=== PATIENT | female | born 2000 | race Caucasian/White ===

== ENCOUNTER 2022-08-11 23:38 | Emergency (ER) | payer OTHER, SELFPAY ==
[2022-08-11 23:41] VITALS: BP 128/76; PULSE 109; RESP 18; TEMP 37.1; O2SAT 98
[2022-08-12 00:49] VITALS: BP 119/66; PULSE 94; RESP 18; TEMP 36.8; O2SAT 99
--- NOTE | 2022-08-12 01:31 | ED.EAR ---
HPI - Ear Problem General Chief complaint: Ear Stated complaint: ear infection Time Seen by Provider: 08/12/22 00:22 Source: patient and family Mode of arrival: ambulatory Limitations: no limitations History of Present Illness HPI Narrative: This is a 22-year-old female that presents to the emergency department for otalgia. Reports she just finished oral and topical antibiotics for an ear infection. Reports she has had continued pain which prompted her to be seen again. Denies fever, erythema, edema, or abnormal drainage. PMFSH Past Medical History Medical History (Updated 08/12/22 @ 01:35 by Camelia Hand PA-C) No active medical problems Social History Social History (Updated 08/12/22 @ 01:35 by Camelia Hand PA-C) Substance use: never Exam Narrative: GENERAL: Well-appearing, well-nourished, and in no acute distress. HEAD: Normocephalic, atraumatic. EYES: EOMI. ENT: Bilateral TMs pearly webb non-bulging. The left TM has a small perforation. There is no erythema, edema or abnormal drainage NECK: Supple. No adenopathy or masses. CHEST: No respiratory distress. HEART: Regular rate EXTREMITIES: Normal range of motion. No edema. SKIN: Warm, dry, no rash. NEURO: No focal deficits. Alert and oriented x3. PSYCH: Normal mood and affect Course Vital Signs Vital signs: Vital Signs Temperature 98.8 F 08/11/22 23:41 Pulse Rate 109 H 08/11/22 23:41 Respiratory Rate 18 08/11/22 23:41 Blood Pressure 128/76 08/11/22 23:41 Pulse Oximetry 98 08/11/22 23:41 Oxygen Delivery Room Air 08/11/22 23:41 Temperature 98.2 F 08/12/22 00:49 Pulse Rate 94 08/12/22 00:49 Respiratory Rate 18 08/12/22 00:49 Blood Pressure 119/66 08/12/22 00:49 Pulse Oximetry 99 08/12/22 00:49 Oxygen Delivery Room Air 08/11/22 23:41 Medical Decision Making MDM Narrative Medical decision making narrative: Patient presents to the emergency department for continued otalgia after recently finishing oral and topical antibiotics for an ear infection. Patient is afebrile and nontoxic-appearing. There is no evidence for infection on exam today. No erythema, edema, or abnormal drainage noted. She does have a very small perforation in her tympanic membrane. She was instructed she should have some follow-up with ENT and to not put anything in the ear and avoid getting water in the ear. She was given warnings to return to the ER Vital Signs Vital Signs: Vital Signs Temperature 98.8 F 08/11/22 23:41 Pulse Rate 109 H 08/11/22 23:41 Respiratory Rate 18 08/11/22 23:41 Blood Pressure 128/76 08/11/22 23:41 Pulse Oximetry 98 08/11/22 23:41 Oxygen Delivery Room Air 08/11/22 23:41 Temperature 98.2 F 08/12/22 00:49 Pulse Rate 94 08/12/22 00:49 Respiratory Rate 18 08/12/22 00:49 Blood Pressure 119/66 08/12/22 00:49 Pulse Oximetry 99 08/12/22 00:49 Oxygen Delivery Room Air 08/11/22 23:41 Critical Care Time Critical Care Time Critical Care Time: No Discharge Plan Discharge Clinical Impression: Tympanic membrane perforation Qualifiers: Laterality: left Qualified Code(s): H72.92 - Unspecified perforation of tympanic membrane, left ear Patient Disposition: Home, Self-Care Condition: Stable Instructions: Ruptured Eardrum (ED) Additional Instructions: Return to the emergency department if you experience fever, redness and swelling of your ear, abnormal drainage from the ear, worsening pain, or any other symptoms that are concerning to you Tylenol or ibuprofen as needed for discomfort. Avoid getting water in the ear Follow-up with ENT Follow-up/Referrals: Kp Fontaine MD [Physician] - 3 Days PHYSICIAN,BRANCH SPECIALIST [Primary Care Provider] -
[2022-08-12 01:53] VITALS: BP 118/75; PULSE 92; RESP 20; TEMP 36.8; O2SAT 98
== END 2022-08-12 01:56 | disposition home or self-care (01) ==
PROVIDERS: Emergency Provider Physician Assistant
DX: H72.92 Unspecified perforation of tympanic membrane, left ear (principal)
CPT/HCPCS: 99281

== ENCOUNTER 2022-09-04 17:51 | Emergency (ER) | payer OTHER, SELFPAY ==
[2022-09-04 19:52] VITALS: BP 117/69; PULSE 85; RESP 17; TEMP 36.7; O2SAT 98
--- NOTE | 2022-09-04 21:19 | ED.EAR ---
HPI - Ear Problem General Chief complaint: Ear Stated complaint: ear pain Time Seen by Provider: 09/04/22 21:07 History of Present Illness HPI Narrative: Patient is a 22-year-old female here for evaluation of left ear pain over the past month. States that she was seen in the ED and subsequently seen at Dr. Fontaine's office for a ruptured tympanic membrane. Patient reportedly was offered patching of the TM which she declined at that time, states that her symptoms improved without intervention. About a week ago her left ear pain returned without obvious trigger. Has been attempting ibuprofen Benadryl without relief. Also notes sinus congestion. She denies any fevers, pain behind her ear, facial swelling. Related Data Allergies Allergy/AdvReac Type Severity Reaction Status Date / Time No Known Allergies Allergy Unverified 08/16/22 08:05 Review of Systems Review of Systems: Gen.: Denies fevers or chills Eyes: Denies eye pain or visual change ENT: Reports left ear pain Respiratory: Denies shortness of breath or cough CV: Denies chest pain or palpitations GI: Denies abdominal pain nausea, emesis or diarrhea denies burning, urgency, frequency or hematuria Musculoskeletal: Denies back pain or muscle pain Neuro: Denies numbness, tingling, weakness or focal weakness Skin: Denies rash Except as documented, all other systems reviewed and negative PMFSH Past Medical History Medical History No active medical problems Family History Family History Sibling Asthma Grandparent Cancer Thyroid disorder Mother Diabetes mellitus Hypertension Social History Social History (Updated 08/16/22 @ 08:06 by Jaky Hanley CMA) Smoking status: Never smoker Alcohol intake: never Substance use: never Lack of Transportation: No Lack of Food: Never True Current Housing: I Have Housing Concerned About Future Housing: No Difficulty Paying Gas/Electric Bills: No Difficulty Paying for Meds: No Currently Unemployed: No Education: High School Diploma/GED Difficulty w/ Childcare or Family Care: No Exam Narrative: APPEARANCE: Well appearing, no pain in distress, well-nourished. Head: Normocephalic and atraumatic. EYES: PERRLA/EOMI, conjunctivae clear NOSE: No nasal drainage EARS: Left TM does have a crescent-shaped rupture at the 7 o'clock position. No mastoid tenderness. External ear normal in appearance THROAT: Oropharynx is clear. Mucous membranes are moist. NECK: Supple. No adenopathy, no masses. RESPIRATORY: Airway patent, respirations nonlabored. Clear to auscultation bilaterally, no rales, rhonchi, wheezing. CARDIOVASCULAR: Regular rate and rhythm without murmurs, rubs, or gallops. ABDOMINAL: Normoactive bowel sounds. Soft, nontender, nondistended. No rebound tenderness or guarding. MUSCULOSKELETAL: Extremities are warm and well-perfused. Moves all extremities well. No edema. NEURO: Normal speech. No focal neurologic deficits. SKIN: Skin is warm and dry. No rashes. PSYCHIATRIC: Normal affect/mood. Course Vital Signs Vital signs: Vital Signs Temperature 98.1 F 09/04/22 19:52 Pulse Rate 85 09/04/22 19:52 Respiratory Rate 17 09/04/22 19:52 Blood Pressure 117/69 09/04/22 19:52 Pulse Oximetry 98 09/04/22 19:52 Oxygen Delivery Room Air 09/04/22 19:52 Temperature 98.1 F 09/04/22 19:52 Pulse Rate 85 09/04/22 19:52 Respiratory Rate 17 09/04/22 19:52 Blood Pressure 117/69 09/04/22 19:52 Pulse Oximetry 98 09/04/22 19:52 Oxygen Delivery Room Air 09/04/22 19:52 Medical Decision Making [facility] Narrative Medical decision making narrative: 22-year-old female here for evaluation of continued left ear pain over the past month after being diagnosed with TM rupture, on exam she does have evidence of a continued rupture, unclear if this is increase
== END 2022-09-04 21:39 | disposition home or self-care (01) ==
LOC: ANHED 22:02
PROVIDERS: Emergency Provider Physician Assistant; PCP Otolaryngology
DX: H72.92 Unspecified perforation of tympanic membrane, left ear (principal)
CPT/HCPCS: 99283

== ENCOUNTER 2022-10-03 18:10 | Emergency (ER) | payer OTHER, SELFPAY ==
--- NOTE | 2022-10-03 18:12 | ECG_ITS ---
Measurements Intervals [place] Rate: 90 P: 44 AR: 128 QRS: 66 QRSD: 93 T: 1 QT: 356 QTc: 437 Interpretive Statements SINUS RHYTHM NONSPECIFIC T-WAVE ABNORMALITY ABNORMAL ECG NO PREVIOUS ECG AVAILABLE FOR COMPARISON Electronically Signed On 10-04-2022 13:38:03 SERVICE DESK AGENT by Blake Rhoades M.D.
[2022-10-03 18:39] VITALS: BP 124/69; PULSE 93; RESP 14; TEMP 36.9; O2SAT 99
[2022-10-03 21:14] VITALS: PULSE 96
--- NOTE | 2022-10-03 21:14 | PC.NURSE ---
Pt c/o pain under her left breast x1 week. She came into the ER tonight because she started having pains in other parts of her chest and under her left arm. She currently denies any pain unless she touches the areas that were hurting. She has been managing her pain at home with OTC pain medication which has been effective. She denies known injury. Denies any associated symptoms. Skin is warm and dry. Respiratory rate regular and non-labored. site monitor shows NSR at a rate of 88.
--- NOTE | 2022-10-03 21:38 | ED.GENADULT ---
HPI - General Adult General Chief complaint: Unspecified Stated complaint: CHEST AND BREAST PAIN. ?LUMPS Time Seen by Provider: 10/03/22 21:08 History of Present Illness HPI narrative: Patient is a 22-year-old female here with her mother and sister for evaluation of pain near her left breast over the past week. Patient was seen at [facility] ED upon symptom onset and reportedly had a reassuring exam and was told to follow-up with her primary doctor. She has an appointment next week with her doctor but wanted to be checked out because her pain is still there. She has been taking naproxen without relief. Believes that she feels a lump in her breast as well. No nipple discharge, overlying skin changes, fevers or chills, breast redness. Related Data Allergies Allergy/AdvReac Type Severity Reaction Status Date / Time No Known Allergies Allergy Unverified 09/18/22 08:48 Review of Systems Review of Systems: Gen.: Denies fevers or chills Eyes: Denies eye pain or visual change ENT: Denies congestion Respiratory: Denies shortness of breath or cough CV: Denies chest pain or palpitations GI: Denies abdominal pain nausea, emesis or diarrhea denies burning, urgency, frequency or hematuria Musculoskeletal: Reports pain near left breast. Denies back pain or muscle pain Neuro: Denies numbness, tingling, weakness or focal weakness Skin: Denies rash Except as documented, all other systems reviewed and negative PMFSH Past Medical History Medical History No active medical problems Family History Family History Sibling Asthma Grandparent Cancer Thyroid disorder Mother Diabetes mellitus Hypertension Social History Social History Smoking status: Never smoker Alcohol intake: never Substance use: never Lack of Transportation: No Lack of Food: Never True Current Housing: I Have Housing Concerned About Future Housing: No Difficulty Paying Gas/Electric Bills: No Difficulty Paying for Meds: No Currently Unemployed: No Education: High School Diploma/GED Difficulty w/ Childcare or Family Care: No Exam Narrative: APPEARANCE: Well appearing, no pain in distress, well-nourished. Head: Normocephalic and atraumatic. EYES: PERRLA/EOMI, conjunctivae clear NOSE: No nasal drainage EARS: External ear normal in appearance THROAT: Oropharynx is clear. Mucous membranes are moist. NECK: Supple. No adenopathy, no masses. RESPIRATORY: Airway patent, respirations nonlabored. Clear to auscultation bilaterally, no rales, rhonchi, wheezing. CARDIOVASCULAR: Regular rate and rhythm without murmurs, rubs, or gallops. ABDOMINAL: Normoactive bowel sounds. Soft, nontender, nondistended. No rebound tenderness or guarding. MUSCULOSKELETAL: Breasts are symmetric in size. No overlying skin changes or inversion of the nipple. No tenderness to palpation of either breast. No masses palpated, fibrocystic changes noted in the left breast. Tenderness to palpation along the sternum and bra line. NEURO: Normal speech. No focal neurologic deficits. SKIN: Skin is warm and dry. No rashes. PSYCHIATRIC: Normal affect/mood. Course Vital Signs Vital signs: Vital Signs Temperature 98.4 F 10/03/22 18:39 Pulse Rate 93 10/03/22 18:39 Respiratory Rate 14 10/03/22 18:39 Blood Pressure 124/69 10/03/22 18:39 Pulse Oximetry 99 10/03/22 18:39 Oxygen Delivery Room Air 10/03/22 18:39 Temperature 98.4 F 10/03/22 18:39 Pulse Rate 82 10/03/22 22:37 Respiratory Rate 18 10/03/22 22:37 Blood Pressure 114/63 10/03/22 22:37 Pulse Oximetry 98 10/03/22 22:37 Oxygen Delivery Room Air 10/03/22 18:39 Medical Decision Making MDM Narrative Medical decision making narrative: 22-year-old female here for evaluation of pain near her left breas
[2022-10-03] MEDS: ACETAMINOPHEN 325 MG TABLET 650 MG PO (21:52)
[2022-10-03 22:37] VITALS: BP 114/63; PULSE 82; RESP 18; O2SAT 98
== END 2022-10-03 22:39 | disposition home or self-care (01) ==
PROVIDERS: Emergency Provider Physician Assistant
DX: M94.0 Chondrocostal junction syndrome [Tietze] (principal); R94.31 Abnormal electrocardiogram [ECG] [EKG]
CPT/HCPCS: 93005; 99283; A9270

== ENCOUNTER 2022-10-08 07:06 | Emergency (ER) | payer OTHER, SELFPAY ==
[2022-10-08] VITALS (23 sets, daily range): BP systolic 103–124; BP diastolic 59–68; PULSE 68–96; RESP 12–21; TEMP 37.4; O2SAT 97–100
--- NOTE | ~2022-10-08 | CT_ITS ---
EXAMINATION: CTA chest PE protocol DATE: 10/08/2022 15:59 INDICATION: dyspnea TECHNIQUE: Computed tomography angiography (CTA) of the chest was performed with 100 mL Omnipaque-350 intravenous contrast timed to evaluate the pulmonary arteries. Coronal maximum intensity projection 3D-reconstructions were created by the technologist. The dose-length product (DLP) was 295.74 mGy-cm. Automated exposure control and iterative reconstruction technique were employed. COMPARISON: X-ray chest, same date. FINDINGS: Lung parenchyma and airways: Clear. Pleura: Unremarkable. Thoracic inlet, axillae and chest wall: Unremarkable. Thoracic aorta: Normal. Mediastinum: Normal. Heart and pericardium: Normal. Coronary artery calcifications: Absent. Upper abdomen: No significant finding. Bones: No acute osseous finding. Pulmonary arteries: Study quality: Adequate. No pulmonary emboli detected. IMPRESSION: No CT evidence of acute pulmonary embolus. No acute process detected in the chest. Reviewed, dictated and finalized at location K. MASTER IMPRESSION: No CT evidence of acute pulmonary embolus. No acute process detected in the [address].
--- NOTE | ~2022-10-08 | XR_ITS ---
XR chest 2V DATE: 10/08/2022 07:50 INDICATION: Worsening right-sided chest pain] breast swelling. TECHNIQUE: PA and lateral views COMPARISON: None FINDINGS: Normal heart size. No hilar or mediastinal enlargement. No pulmonary infiltrate or consolid ation, pleural effusion or pulmonary vascular congestion or pneumothorax. Minimal thoracic dextroscoliosis. IMPRESSION: No active cardiopulmonary disease Reviewed, dictated and finalized at location A. DELIVERY VEHICLE TEAM TECHNICIAN
--- NOTE | ~2022-10-08 | US_ITS ---
US breast LT limited DATE: 10/08/2022 10:12 INDICATION: Left breast pain, hardening TECHNIQUE: Real-time and color flow imaging of the left breast was performed at the area of complaint of pain, hardening COMPARISON: None FINDINGS: No suspicious mass or shadowing or abnormal vascularity of the left breast is noted in the areas of clinical complaint, with images provided at 3:00, 4:00, 5:00, 6:00 and subareolar area. IMPRESSION: Negative Reviewed, dictated and finalized at Location A. Reviewed, dictated and finalized at location A. MBLER PING PONG TABLE IMPRESSION: Negative
[2022-10-08 08:14] LABS: Basophils Percent Auto 0.4 % (0.2-1.2); Eosinophils Absolute Auto 0.1 K/mm3 (0-0.3); Eosinophils Percent Auto 1.6 % (0-4.4); Hematocrit 36.4 % (37.0-47.0); Hemoglobin 11.9 g/dL (12.0-15.0); Immature Granulocyte Absolute 0.02 K/mm3 (0.00-0.031); Immature Granulocyte Percent A 0.3 % (0-0.5); Lymphocytes Percent Auto 28.2 % (18.3-44.2); Mean Corpuscular HGB Conc 32.7 g/dl (32-36); Mean Corpuscular Volume 91.7 fl (80-100); Mean Platelet Volume 9.8 fl (7.4-10.4); Monocytes Absolute Auto 0.6 K/mm3 (0.1-0.6); Monocytes Percent Auto 8.5 % (2.6-8.5); Neutrophils Absolute Auto 4.3 K/mm3 (1.3-6.7); Platelet Count Result 290 k/mm3 (150-375); Red Blood Count 3.97 M/mm3 (4.2-5.4); Red Cell Distribution Width 12.4 % (11.5-14.5); White Blood Count 7.1 K/mm3 (4.5-10.0)
[2022-10-08 08:26] LABS: Alanine Aminotransferase 18 U/L (6-35); Albumin Level 4.4 g/dL (3.5-5.1); Alkaline Phosphatase 45 U/L (38-126); Anion Gap 7 mmol/L (8-16); Aspartate Amino Transferase 17 U/L (14-36); Bilirubin,Total 0.6 mg/dL (0.2-1.3); Blood Urea Nitrogen 9 mg/dL (7-17); Calcium 8.7 mg/dL (8.4-10.2); Carbon Dioxide 23 mmol/L (22-30); Chloride 106 mmol/L (98-107); Estimated CRCL calculation 133 ml/min; Estimated Glomerular Filt Rate > 60; Glucose 95 mg/dL (65-110); INR 1.1; Lipase 54 U/L (23-300); Partial Thromboplastin Time 26.6 SECONDS (22.3-36.8); Potassium 3.6 mmol/L (3.4-5.0); Prothrombin Time 13.3 Seconds (11.1-14.7); Sodium 136 mmol/L (137-145)
[2022-10-08 08:37] LABS: Troponin I < 0.012 ng/mL (0.000-0.034)
[2022-10-08] MEDS: FAMOTIDINE 20 MG/2 ML VIAL IV PUSH (09:14)
[2022-10-08 11:20] LABS: Troponin I < 0.012 ng/mL (0.000-0.034)
[2022-10-08] MEDS: BELLADONNA ALK/PHENOB ELIX 10 ML, MAG HYDROX/ALUMINUM HYD/SIMETH 30 ML, LIDOCAINE HCL 2... PO (12:20)
[2022-10-08] MEDS: KETOROLAC 30 MG/ML VIAL (*BKC) IV PUSH (13:03)
[2022-10-08 14:18] LABS: D Dimer 0.67 ug/mL (<0.48)
[2022-10-08 14:19] LABS: Troponin I < 0.012 ng/mL (0.000-0.034)
--- NOTE | 2022-10-08 16:13 | ED.GENADULT ---
HPI - General Adult General Chief complaint: Unspecified Stated complaint: abd and chest pain Time Seen by Provider: 10/08/22 07:10 Source: RN notes reviewed History of Present Illness HPI narrative: Patient presents emergency department from home for left breast pain. Patient history is per the patient as well as mother this present. States that she has been having pain in her left lateral breast for approximately the past 2 weeks. Pain is aching in nature and at times will radiate into her left axilla. She denies any rashes she states that she has been seen for this and worked up in the emergency department with negative work-up she was placed on naproxen but has not taken it because it has been upsetting her stomach. She does note some mild pain in the epigastric region of the stomach. She denies any fevers or chills she denies any shortness of breath she denies any nausea vomiting or diarrhea. Patient did not take anything for the pain is Related Data Allergies Allergy/AdvReac Type Severity Reaction Status Date / Time No Known Allergies Allergy Verified 10/08/22 07:06 Review of Systems Review of Systems: Gen.: Denies fevers or chills ENT: Denies congestion Respiratory: Denies shortness of breath or cough CV: See HPI GI: Reports epigastric abdominal pain, denies nausea, emesis or diarrhea denies burning, urgency, frequency or hematuria Musculoskeletal: Denies back pain or muscle pain Neuro: Denies numbness, tingling, weakness or focal weakness Skin: Denies rash Except as documented, all other systems reviewed and negative [facility] Past Medical History Medical History No active medical problems Family History Family History Sibling Asthma Grandparent Cancer Thyroid disorder Mother Diabetes mellitus Hypertension Social History Social History Smoking status: Never smoker Alcohol intake: never Substance use: never Lack of Transportation: No Lack of Food: Never True Current Housing: I Have Housing Concerned About Future Housing: No Difficulty Paying Gas/Electric Bills: No Difficulty Paying for Meds: No Currently Unemployed: No Education: High School Diploma/GED Difficulty w/ Childcare or Family Care: No Exam Narrative: APPEARANCE: No acute distress, nontoxic, resting in bed EYES: EOMI HEENT: Normocephalic, atraumatic, OMM RESPIRATORY: No respiratory distress Clear to auscultation bilaterally with no rhonchi wheezing or rales. CARDIOVASCULAR: Regular rate and rhythm without murmurs rubs or gallops. Breast: Tender palpation of the left lateral breast there is no overlying erythema there is no skin induration there is no masses palpated the nipple is normal in appearance no discharge n, tender to palpation epigastric region no tenderness no upper quadrant, lateral quadrant right lower quadrant left lower quadrant no rebound or guarding oted no overlying rash ABDOMINAL: Soft, nondistended MUSCULOSKELETAl: Moves all extremities. No clubbing, cyanosis or edema. NEURO: Awake and alert. Following commands, speech normal, no focal deficits SKIN:: Warm, dry. No rashes lesions or abrasions no rash seen on chest or back PSYCHIATRIC: Normal affect/mood, Course Course Emergency Course: Discussed with patient results of workup and diagnosis. Discussed need for follow-up with primary care, proper use of medication, and reasons to return to the emergency department. Patient understands and agrees to current treatment plan Vital Signs Vital signs: Vital Signs Temperature 99.4 F 10/08/22 07:29 Pulse Rate 90 10/08/22 07:29 Respiratory Rate 12 10/08/22 07:29 Blood Pressure 124/68 10/08/22 07:29 Pulse Oximetry 100 10/08/22 07:29 Temperature 99.4 F 10/08/22 07:29 Pulse Rate 78 10/08/22 16:34 Respiratory
== END 2022-10-08 16:36 | disposition home or self-care (01) ==
PROVIDERS: Emergency Provider Emergency Medicine
DX: N64.4 Mastodynia (principal)
CPT/HCPCS: 36415; 71046; 71275; 76642; 80053; 81025; 83690; 84484; 85025; 85380; 85610; 85730; 96365; 96375; 99284; A9270; J0131; J1885; Q9967

== ENCOUNTER 2022-10-13 20:50 | Emergency (ER) | payer OTHER, SELFPAY ==
[2022-10-13 20:54] VITALS: BP 124/61; PULSE 99; RESP 16; TEMP 37.3; O2SAT 100
[2022-10-13 23:17] VITALS: BP 128/73; PULSE 96; RESP 18; O2SAT 99
[2022-10-14 01:52] VITALS: BP 106/59; PULSE 87; RESP 17; O2SAT 100
--- NOTE | 2022-10-14 02:18 | ECG_ITS ---
Measurements Intervals [place] Rate: 80 P: 33 FL: 148 QRS: 66 QRSD: 92 T: 38 QT: 373 QTc: 430 Interpretive Statements SINUS RHYTHM WITH SINUS ARRHYTHMIA NORMAL ECG COMPARED TO ECG 10/03/2022 18:26:35 SINUS ARRHYTHMIA NOW PRESENT Electronically Signed On 10-14-2022 6:52:55 JOB ANALYSIS MANAGER by Alberto Boyd D.O.
--- NOTE | 2022-10-14 02:19 | ED.SKABFB ---
HPI - Skin/Abscess/Foreign Bdy General Chief complaint: Skin/Abscess/Foreign Body Stated complaint: breast pain Time Seen by Provider: 10/14/22 02:04 History of Present Illness HPI narrative: 22-year-old female reports for left breast pain for 2 weeks. Patient reports the pain is constant and diffuse throughout her breast. She is complaining that her breast is more swollen . LMP 09/23. She denies concern for . No rashes, lesions, nipple discharge, chest pain, shortness of breath. Patient evaluated in the ED on 10/03 and diagnosed with costochondritis, and again on 10/08 and diagnosed with left breast pain and encouraged to follow-up with VARIETY PERFORMER. Patient reports she has not followed up with VARIETY PERFORMER or primary care. Patient is reporting that she has been taking her naproxen with some relief of pain. Patient reports wearing a bra relieves some of the pain. Pain is unchanged from previous ED visits. Related Data Allergies Allergy/AdvReac Type Severity Reaction Status Date / Time No Known Allergies Allergy Verified 10/14/22 01:53 Review of Systems Review of Systems: CONSTITUTIONAL: Denies fever, chills EYES: Denies visual changes, redness, or discharge. ENT: Denies rhinorrhea, congestion, sore throat, or otalgia. CARDIOVASCULAR: Denies chest pain, palpitations, or edema. RESPIRATORY: Denies cough or dyspnea. GASTROINTESTINAL: Denies abdominal pain, nausea, vomiting, or diarrhea. GENITOURINARY: Denies dysuria or hematuria. SKIN: Denies rash or itching. MUSCULOSKELETAL: Denies back pain, joint pain, or myalgia. NEUROLOGIC: Denies headache, numbness, dizziness, or weakness. PSYCHIATRIC: Denies anxiety or depression. [facility] Past Medical History Medical History No active medical problems Family History Family History Sibling Asthma Grandparent Cancer Thyroid disorder Mother Diabetes mellitus Hypertension Social History Social History Smoking status: Never smoker Alcohol intake: never Substance use: never Lack of Transportation: No Lack of Food: Never True Current Housing: I Have Housing Concerned About Future Housing: No Difficulty Paying Gas/Electric Bills: No Difficulty Paying for Meds: No Currently Unemployed: No Education: High School Diploma/GED Difficulty w/ Childcare or Family Care: No Exam Narrative: GENERAL: Well-appearing, well-nourished, and in no acute distress. HEAD: Normocephalic, atraumatic. EYES: PERRLA and EOMI. ENT: Nares clear, no rhinorrhea or epistaxis. Mucous membranes moist. Oropharynx without tonsillar hypertrophy exudate or other lesions. NECK: Supple. No adenopathy or masses. No carotid bruits or JVD CHEST: Clear to auscultation. No respiratory distress. No wheezes rales or rhonchi. Breast equal in size. There is no axillary lymphadenopathy bilaterally. No tenderness to palpation of breast bilaterally. No nipple discharge appreciated. Nipples are not inverted. Fibrocystic changes noted to breast, left>R. There is tenderness along the left sternum with palpation. No overlying skin changes, no rashes, no areas of fluctuation or induration. HEART: Regular rate and rhythm. No murmur heard. Normal peripheral pulses. ABDOMEN: Soft, nontender, nondistended, normal active bowel sounds. No rebound, guarding. EXTREMITIES: Normal range of motion. No edema. SKIN: Warm, dry, no rash. NEURO: No focal deficits. Alert and oriented x3. PSYCH: Normal mood and affect. Course Vital Signs Vital signs: Vital Signs Temperature 99.1 F 10/13/22 20:54 Pulse Rate 99 10/13/22 20:54 Respiratory Rate 16 10/13/22 20:54 Blood Pressure 124/61 10/13/22 20:54 Pulse Oximetry 100 10/13/22 20:54 Oxygen Delivery Room Air 10/13/22 20:54 Temperature 99.1 F 10/13/22 20:54 Pulse Rate
== END 2022-10-14 03:38 | disposition home or self-care (01) ==
PROVIDERS: Emergency Provider Physician Assistant
DX: M94.0 Chondrocostal junction syndrome [Tietze] (principal); N64.4 Mastodynia
CPT/HCPCS: 81025; 93005; 99283

== ENCOUNTER 2022-11-23 12:55 | Outpatient (CLI) | payer OTHER, SELFPAY ==
--- NOTE | ~2022-11-23 | US_ITS ---
US right upper quadrant INDICATION: Epigastric and right upper quadrant pain for 2 months PROCEDURE: Realtime right upper abdominal ultrasound. COMPARISON: No prior studies for comparison. FINDINGS: Pancreas is not visualized due to bowel gas. Liver echotexture is normal without focal mas s or intrahepatic biliary dilatation. There is normal directional flow in the portal vein. The gallbladder is normal without stones, gallbladder wall thickening or pericholecystic fluid. Comm on bile duct measures 2.2 mm. No sonographic Sage's sign. IMPRESSION: 1: Normal limited abdominal ultrasound. Reviewed, dictated and finalized at location L.
== END 2022-11-23 12:56 | disposition home or self-care (01) ==
PROVIDERS: Visit Provider Nurse Practitioner Family
DX: R10.816 Epigastric abdominal tenderness (principal); R10.811 Right upper quadrant abdominal tenderness
CPT/HCPCS: 76705